=== PATIENT | female | born 1955 | race Caucasian/White ===

== ENCOUNTER 2018-02-25 11:22 | Outpatient (CLI) | payer MEDICARE, OTHER | END 2018-02-25 23:59 | disposition home or self-care (01) | LOC: LAB.WCP 11:22 | PROVIDERS: ATTEND Family Medicine | DX: E04.1 Nontoxic single thyroid nodule (principal) | CPT/HCPCS: 36415; 84443 ==

== ENCOUNTER 2018-03-12 16:02 | Outpatient (CLI) | payer MEDICARE, OTHER ==
--- NOTE | 2018-03-13 12:24 | Ultrasound Report ---
Reason: THYROID NODULE Procedure Date: 03/12/2018 Accession Number: [id number] / [id number] Procedure: US - Head or Neck Soft Tissue CPT Code: FULL RESULT: EXAM: THYROID ULTRASOUND EXAM DATE: 03/12/2018 05:08 PM. CLINICAL HISTORY: Thyroid nodule. COMPARISON: None. TECHNIQUE: Real time sonographic imaging of the thyroid was performed by the freelance web designer. Multiple authorization representative static images were saved for review. FINDINGS: THYROID GLAND: Right Lobe: 1.9 x 1.6 x 3.9 cm, volume 6.3 cc. Normal background echotexture. Right Lobe Nodules: 1.5 x 0.7 x 0.8 cm mixed cystic solid nodule with vascularity by color Doppler and possible microcalcifications, mid to upper pole. Heterogeneous mixed cystic solid-appearing nodule without vascularity by color Doppler measuring 0.8 x 0.5 x 0.7 cm, lower pole. Left Lobe: 1.7 x 1.8 x 4.6 cm, volume 7 cc. Normal background echotexture. Left Lobe Nodules: Solid 1.9 x 1.4 x 1.5 cm nodule with vascularity, mid to upper pole. 0.6 x 0.5 x 0.7 cm cystic solid nodule without definite vascularity, inferior pole. Isthmus: 0.2 cm AP. Isthmic Nodules: None. LYMPH NODES: No adenopathy demonstrated in the central or lateral compartment. OTHER: None. IMPRESSION: The 1.5 cm right thyroid nodule is high suspicion, recommend FNA. The solid 1.9 cm left thyroid lesion is intermediate suspicion, recommend FNA. Management recommendations are based on 2015 [employer] [employer] Management Guidelines for Adult Patients with Thyroid Nodules and Differentiated Thyroid Cancer. RADIA
== END 2018-03-12 16:03 | disposition home or self-care (01) ==
LOC: DI 16:02
PROVIDERS: ATTEND Family Medicine
DX: E04.2 Nontoxic multinodular goiter (principal)
CPT/HCPCS: 76536

== ENCOUNTER 2018-05-13 13:38 | Outpatient (CLI) | payer MEDICARE, OTHER ==
[~2018-05-13 13:38] MED LIST: BUFFERED LIDOCAINE 10 ML SYRINGE ONE
[2018-05-13] MEDS ORDERED: BUFFERED LIDOCAINE 10 ML SYRINGE IU ONE (15:25)
--- NOTE | 2018-05-13 16:16 | Ultrasound Report ---
Reason: THYROID NODULE Procedure Date: 05/13/2018 Accession Number: [id number] / [id number] Procedure: US - FNA Bx w/US Gnd les CPT Code: 46888 FULL RESULT: EXAM: THYROID FINE NEEDLE ASPIRATION. EXAM DATE: 05/13/2018 02:00 PM. CLINICAL HISTORY: Thyroid nodule. COMPARISON: None. TECHNIQUE: The risks, benefits, and alternatives of the procedure were discussed with the patient. All questions were answered. Written and verbal consent were obtained. A site was marked over the right and left thyroid nodule in question under live sonographic evaluation, then subsequently prepped and draped in a sterile manner. Local anesthesia was performed with 1% lidocaine over both access sites. Then, 22 gauge fine-needle aspirates/passes were performed through the right and left nodule, 4 times each and passed to the child neurologist for preparation. Estimated blood loss was 0 mL. Sonographic images demonstrate needle placement within the target nodule. Fluoroscopy Time: None. Number of Images: 26 ultrasound images. FINDINGS IMPRESSION: FNA of a right and a left dominant thyroid nodule. RADIA
== END 2018-05-13 13:39 | disposition home or self-care (01) ==
LOC: DI 13:38
PROVIDERS: ATTEND Internal Medicine Gastroenterology
DX: E04.2 Nontoxic multinodular goiter (principal)
CPT/HCPCS: 10005

== ENCOUNTER 2019-03-17 10:42 | Outpatient (CLI) | payer MEDICARE, OTHER ==
[2019-03-17 18:14] LABS: BASOPHILS # (AUTO) 0.1 10^3/uL (0.0-0.1); BASOPHILS % (AUTO) 0.8 %; EOSINOPHILS # (AUTO) 0.2 10^3/uL (0.0-0.7); EOSINOPHILS % (AUTO) 2.5 %; HGB - HEMOGLOBIN 14.2 g/dL (12.0-16.0); LYMPHOCYTES # (AUTO) 2.2 10^3/uL (1.5-3.5); LYMPHOCYTES % (AUTO) 25.9 %; MEAN CORPUSCULAR HEMOGLOBIN 32.8 pg (27.0-31.0); MEAN CORPUSCULAR HGB CONC 33.5 g/dL (32.0-36.0); MEAN CORPUSCULAR VOLUME 97.9 fL (81.0-99.0); MEAN PLATELET VOLUME 11.1 fL (7.9-10.8); MONOCYTES # (AUTO) 0.6 10^3/uL (0.0-1.0); MONOCYTES % (AUTO) 7.5 %; NEUTROPHILS # (AUTO) 5.3 10^3/uL (1.5-6.6); NEUTROPHILS % (AUTO) 62.9 %; PLT - PLATELET COUNT 335 10^3/uL (130-450); RED BLOOD COUNT 4.33 10^6/uL (4.20-5.40); RED CELL DISTRIBUTION WIDTH 14.3 % (12.0-15.0); WHITE BLOOD COUNT 8.4 x10^3/uL (4.8-10.8)
[2019-03-17 18:24] LABS: ALBUMIN 4.1 g/dL (3.2-5.5); ALBUMIN/GLOBULIN RATIO 1.3 (1.0-2.2); ALKALINE PHOSPHATASE 62 IU/L (42-121); ALT ALANINE AMINOTRANSFERASE 17 IU/L (10-60); AST ASPARTATE AMINOTRANSFERASE 19 IU/L (10-42); BILIRUBIN,TOTAL 0.6 mg/dL (0.2-1.0); BUN - BLOOD UREA NITROGEN 16 mg/dL (6-20); CALCIUM 9.1 mg/dL (8.5-10.3); CARBON DIOXIDE - CO2 24 mmol/L (21-32); CHLORIDE 105 mmol/L (101-111); CHOL/HDL RATIO 3.3 (<4.4); CHOLESTEROL 240 mg/dL; CREATININE 0.9 mg/dL (0.4-1.0); GFR - MDRD 63 (>89); GLUCOSE 100 mg/dL (70-100); HDL CHOLESTEROL 73 mg/dL; LDL CHOLESTEROL,CALCULATED 151 mg/dL; LDL/HDL RATIO 2.1 (<4.4); SODIUM 139 mmol/L (135-145); TOTAL PROTEIN 7.2 g/dL (6.7-8.2); VLDL CHOLESTEROL 16 mg/dL
== END 2019-03-17 23:59 | disposition home or self-care (01) ==
LOC: LAB.N 10:42
PROVIDERS: ATTEND Family Medicine
DX: I10 Essential (primary) hypertension (principal); E04.2 Nontoxic multinodular goiter; D80.8 Other immunodeficiencies with predominantly antibody defects
CPT/HCPCS: 36415; 80053; 80061; 83036; 83721; 84443; 85025

== ENCOUNTER 2020-10-18 07:44 | Outpatient (CLI) | payer MEDICARE, OTHER ==
[2020-10-18 12:26] LABS: BASOPHILS # (AUTO) 0.1 10^3/uL (0.0-0.1); BASOPHILS % (AUTO) 1.5 %; EOSINOPHILS # (AUTO) 0.3 10^3/uL (0.0-0.7); EOSINOPHILS % (AUTO) 4.8 %; HCT - HEMATOCRIT 43.9 % (37.0-47.0); HGB - HEMOGLOBIN 14.6 g/dL (12.0-16.0); LYMPHOCYTES # (AUTO) 2.2 10^3/uL (1.5-3.5); MEAN CORPUSCULAR HEMOGLOBIN 32.7 pg (27.0-31.0); MEAN CORPUSCULAR HGB CONC 33.3 g/dL (32.0-36.0); MEAN CORPUSCULAR VOLUME 98.4 fL (81.0-99.0); MEAN PLATELET VOLUME 10.1 fL (7.9-10.8); MONOCYTES # (AUTO) 0.6 10^3/uL (0.0-1.0); NEUTROPHILS % (AUTO) 48.4 %; PLT - PLATELET COUNT 336 10^3/uL (130-450); RED BLOOD COUNT 4.46 10^6/uL (4.20-5.40); RED CELL DISTRIBUTION WIDTH 14.7 % (12.0-15.0); WHITE BLOOD COUNT 6.2 x10^3/uL (4.8-10.8)
[2020-10-18 12:53] LABS: ALBUMIN/GLOBULIN RATIO 1.2 (1.0-2.2); ALKALINE PHOSPHATASE 53 IU/L (42-121); ALT ALANINE AMINOTRANSFERASE 21 IU/L (10-60); AST ASPARTATE AMINOTRANSFERASE 19 IU/L (10-42); BILIRUBIN,TOTAL 0.4 mg/dL (0.2-1.0); BUN - BLOOD UREA NITROGEN 21 mg/dL (6-20); CALCIUM 9.3 mg/dL (8.5-10.3); CARBON DIOXIDE - CO2 24 mmol/L (21-32); CHLORIDE 106 mmol/L (101-111); CHOL/HDL RATIO 3.8 (<4.4); CHOLESTEROL 249 mg/dL; CREATININE 1.1 mg/dL (0.4-1.0); GFR - MDRD 50 (>89); GLUCOSE 104 mg/dL (70-100); HDL CHOLESTEROL 65 mg/dL; LDL CHOLESTEROL,CALCULATED 171 mg/dL; LDL/HDL RATIO 2.6 (<4.4); POTASSIUM 4.5 mmol/L (3.5-5.0); SODIUM 138 mmol/L (135-145); TOTAL PROTEIN 7.3 g/dL (6.7-8.2); TRIGLYCERIDES 67 mg/dL; VLDL CHOLESTEROL 13 mg/dL
[2020-10-18 12:58] LABS: THYROID STIMULATING HORMONE 2.16 uIU/mL (0.34-5.60)
== END 2020-10-18 07:45 | disposition home or self-care (01) ==
LOC: LAB.N 07:44
PROVIDERS: ATTEND Nurse Practitioner Family
DX: I10 Essential (primary) hypertension (principal)
CPT/HCPCS: 36415; 80053; 80061; 83721; 84443; 85025

== ENCOUNTER 2022-09-20 13:41 | Outpatient (CLI) | payer MEDICARE, OTHER ==
--- NOTE | 2022-09-20 16:06 | CT Report ---
PROCEDURE: Low Dose Lung Cancer Screen INDICATIONS: SMOKER TECHNIQUE: A CT scan of the chest was performed. Intravenous contrast media was not administered. Images were re corded and evaluated at appropriate window settings. Reformats: axial MIP of the chest, coronal and s agittal. For radiation dose reduction, the following was used: automated exposure control, adjustment of mA and/or kV according to patient size. COMPARISON: None. FINDINGS: Image quality: Excellent. Lungs and pleura: Small lung nodules are present. Nodule 1: 2 mm; right upper lobe neck; series 4 image 96. Nodule 2: 1 mm; left upper lobe neck; series 4 image 96. Mild emphysema. No pulmonary infiltrate or pleural effusion. Right middle lobe and lingula scars and atelectasis No pleural effusions. No pneumothorax. No suspicious pulmonary nodules which require follow up. Mediastinum: Heart size is normal. Mild coronary calcification. No pericardial effusion. No large ves serge abnormality. No mediastinal adenopathy by size criteria. Sized mediastinal lymph nodes are noted , nonspecific. Chest wall and lower neck: Thyroid is unremarkable. No axillary or supraclavicular adenopathy by size . Bones: Old healed sternal fracture is noted. No aggressive osseous abnormality. Upper Abdomen: Unremarkable. IMPRESSION: Lung RADS: 2 - Benign. Recommendation: Continue annual screening in 12 Months with LDCT Reviewed by: Teodora Bradley MD on 09/20/2022 4:04 PM PDT Approved by: Teodora Bradley MD on 09/20/2022 4:04 PM PDT Station ID: [id number]
== END 2022-09-20 13:42 | disposition home or self-care (01) ==
LOC: DI 13:41
PROVIDERS: ATTEND Nurse Practitioner Family
DX: Z12.2 Encounter for screening for malignant neoplasm of respiratory organs (principal); F17.210 Nicotine dependence, cigarettes, uncomplicated